=== PATIENT | male | born 1990 | race Caucasian/White ===

== ENCOUNTER 2016-05-07 20:35 | Emergency (ER) | payer SELFPAY ==
[~2016-05-07] VITALS: Ht 180.3 cm; Wt 71.1 kg
[~2016-05-07 20:35] MED LIST: DOXY-300 PO
[2016-05-07 20:43] VITALS: TEMP 36.9; Ht 180.3 cm; Wt 71.1 kg
[2016-05-07] MEDS ORDERED: CEFTRIAXONE SOD INJ 1 GM ADDVIAL IV STA (21:45)
[2016-05-07] MEDS ORDERED: SULFAMETHOXAZOLE/TRIMETHOPRIM DS 800/160MG TAB PO STA (21:45)
[2016-05-07 22:20] LABS: BASO ABS # 0.05 K/uL (0-0.2); COMPLETE YES; EOS % 1.9 %; HEMATOCRIT 40.5 % (42-52); IG% 0.2 %; LYMPH % 23.6 %; LYMPH ABS # 1.23 K/uL (1.2-3.4); MEAN CELL VOLUME 83.9 fL (80-100); MEAN CORPUSCULAR HEMOGLOBIN 30.4 pg (25-34); MEAN CORPUSCULAR HGB CONC 36.3 g/dl (32-36); MEAN PLATELET VOLUME 10.8 fL (7.4-10.4); NEUT % 53.3 %; PLATELET COUNT 206 K/uL (130-400); RED BLOOD COUNT 4.83 M/uL (4.7-6.1); WHITE BLOOD COUNT 5.21 K/uL (4.8-10.8)
[2016-05-07 22:46] LABS: BUN/CREATININE RATIO 18.6 (10-20); C-REACTIVE PROTEIN 6.11 mg/dl (0-0.29); CALCIUM 8.8 mg/dl (8.5-10.1); CREATININE 0.9 mg/dl (0.60-1.40); POTASSIUM 3.6 mmol/L (3.5-5.1)
[2016-05-07 22:48] LABS: ALB/GLOB RATIO 1.2 (0.9-2)
--- NOTE | 2016-05-07 22:48 | DIAGNOSTIC IMAGING REPORT ---
RIGHT UPPER EXTREMITY ULTRASOUND CLINICAL HISTORY: Wound infection. Evaluate for abscess. COMPARISON STUDY: No previous studies for comparison. TECHNIQUE: Sonography of the right antecubital fossa and proximal right forearm was performed. FINDINGS: No well-defined fluid collection was identified within the right antecubital fossa or proximal right forearm. Note was made of a 4.1 x 1.1 x 3.5 cm subcutaneous abnormality. IMPRESSION: 4.1 x 1.1 x 3.5 cm subcutaneous abnormality of the right antecubital fossa and proximal right forearm. The sonographic appearance is nonspecific but this may reflect soft tissue swelling. No drainable abscess identified. Electronically signed by: Asim Harp M.D. 05/07/2016 10:47 PM Dictated Date/Time: 05/07/2016 10:43 PM
--- NOTE | 2016-05-07 22:50 | DIAGNOSTIC IMAGING REPORT ---
LEFT UPPER EXTREMITY ULTRASOUND CLINICAL HISTORY: Wound infection. Evaluate for abscess. COMPARISON STUDY: No previous studies for comparison. TECHNIQUE: Sonography of the left antecubital fossa and proximal forearm was performed. FINDINGS: Note was made of a 2.2 x 1.1 x 0.5 cm linear hypoechoic focus within the subcutaneous tissues of the left forearm. No additional abnormalities were identified on this exam. IMPRESSION: Small 2.2 x 1.1 x 0.5 cm linear hypoechoic abnormality of the subcutaneous tissues of the left forearm. The sonographic appearance is nonspecific although this could reflect a small amount of thrombus within a superficial vein. A tiny fluid collection could appear similar. Electronically signed by: Asim Harp M.D. 05/07/2016 10:49 PM Dictated Date/Time: 05/07/2016 10:47 PM
[2016-05-08] MEDS ORDERED: SEPTRA DS HOME PACK 1 EA VIAL PO ONE
[2016-05-08] MEDS ORDERED: CEPHALEXIN 500MG HOME PACK 1 EA BTL PO ONE
--- NOTE | 2016-05-08 00:01 | EMERGENCY ROOM VISIT NOTE ---
History First contact with patient: 21:40 Chief Complaint: OTHER COMPLAINT Stated Complaint: WOUND INFECTION History of Present Illness The patient is a 26 year old male who presents to the Emergency Department by private vehicle for evaluation of possible abscesses to the bilateral arms. He reports a history of IV drug use. He reports the last time he used was approximately 5 days ago. He typically uses methamphetamine. He does report a history cellulitis to the neck which he was initially treated for at [facility]. He was unable to obtain his medication secondary to lack of insurance. The patient reports that he has had increasing redness and swelling to the bilateral and to keep all areas over the last few days. He denies any fevers or chills. He rates his current discomfort as an 8/10. He denies any chest pain, shortness of breath, dizziness, lightheadedness, nausea, vomiting, or palpitations. He denies any broken needles during injections. Review of Systems A complete 10-point Review of Systems was discussed with the patient, with pertinent positives and negatives listed in the History of Present Illness. All remaining Review of Systems questions can be considered negative unless otherwise specified. Social History Smoking Status: Current Every Day Smoker Smokeless Tobacco Use: No Drug Use: other (meth) Occupation Status: employed Current/Historical Medications Scheduled Cephalexin Monohydrate (Keflex), 500 MG PO TID Sulfa/Trimethoprim (Bactrim Ds 800MG/160MG), 1 TAB PO BID Allergies Coded Allergies: Acetaminophen (Unverified Allergy, Unknown, GI UPSET , 05/07/16) Physical Exam Vital Signs Date Time Temp Pulse Resp B/P Pulse Ox O2 Delivery O2 Flow Rate FiO2 05/08/16 00:17 86 16 124/71 98 05/07/16 23:02 99 18 128/77 97 Room Air 05/07/16 20:43 36.9 102 20 142/80 99 Pain Rating (0-10): 8 Physical Exam VITAL SIGNS - Vital signs and nursing notes were reviewed. GENERAL - 26-year-old male appearing his stated age and in noticeable discomfort throughout the exam. MUSCULOSKELETAL - The RIGHT upper extremity demonstrates erythema and mild tenderness to palpation to the RIGHT antecubital fossa. No fluctuance to palpation. No discharge or drainage. No palpable cords. No limited streaking. The LEFT upper extremity demonstrates a focus of erythema to the proximal forearm. No fluctuance to palpation. No discharge or drainage. No palpable cords. Full range of motion of the bilateral upper extremities noted with +5/5 strength appreciated bilaterally. NEUROLOGIC - SENSORY: Spinothalamic tract was found to be intact with ability to discriminate sharp versus dull sensation at the level of the bilateral elbows down to the fingertips. No sensory deficits of the dorsal column were appreciated utilizing light touch for evaluation. VASCULAR - Capillary refill was brisk. +3/5 radial pulse palpated. Medical Decision & Procedures ER Provider Diagnostic Interpretation: Radiological imaging and reports were reviewed by myself. Radiologist's Interpretation as follows: RIGHT UPPER EXTREMITY ULTRASOUND CLINICAL HISTORY: Wound infection. Evaluate for abscess. COMPARISON STUDY: No previous studies for comparison. TECHNIQUE: Sonography of the right antecubital fossa and proximal right forearm was performed. FINDINGS: No well-defined fluid collection was identified within the right antecubital fossa or proximal right forearm. Note was made of a 4.1 x 1.1 x 3.5 cm subcutaneous abnormality. IMPRESSION: 4.1 x 1.1 x 3.5 cm subcutaneous abnormality of the right antecubital fossa and proximal right forearm. The sonographic appearance is nonspecific but this may reflect soft tissue swelling. No drainable abscess identified. LEFT UPPER EXTREMITY ULTRASOUND CLINICAL HISTORY: Wound infection. Evaluate for abscess. COMPARISON STUDY: No previous studies for comparison. TECHNIQUE: Sonography of the left antecubital fossa and proximal forearm was performed. FINDINGS: Note was made of a 2.2 x 1.1 x 0.5 cm linear hypoechoic focus within the subcutaneous tissues of the left forearm. No additional abnormalities were identified on this exam. IMPRESSION: Small 2.2 x 1.1 x 0.5 cm linear hypoechoic abnormality of the subcutaneous tissues of the left forearm. The sonographic appearance is nonspecific although this could reflect a small amount of thrombus within a superficial vein. A tiny fluid collection could appear similar. Laboratory Results 05/07/16 22:07 Red Blood Count 4.83, Mean Corpuscular Volume 83.9, Mean Corpuscular Hemoglobin 30.4, Mean Corpuscular Hemoglobin Concent 36.3, Mean Platelet Volume 10.8, Neutrophils (%) (Auto) 53.3, Lymphocytes (%) (Auto) 23.6, Monocytes (%) (Auto) 20.0, Eosinophils (%) (Auto) 1.9, Basophils (%) (Auto) 1.0, Neutrophils # (Auto ) 2.78, Lymphocytes # (Auto) 1.23, Monocytes # (Auto) 1.04, Eosinophils # (Auto ) 0.10, Basophils # (Auto) 0.05 05/07/16 22:07 Test 05/07/16 22:07 White Blood Count 5.21 K/uL (4.8-10.8) Red Blood Count 4.83 M/uL (4.7-6.1) Hemoglobin 14.7 g/dL (14.0-18.0) Hematocrit 40.5 % (42-52) Mean Corpuscular Volume 83.9 fL (80-100) Mean Corpuscular Hemoglobin 30.4 pg (25-34) Mean Corpuscular Hemoglobin Concent 36.3 g/dl (32-36) Platelet Count 206 K/uL (130-400) Mean Platelet Volume 10.8 fL (7.4-10.4) Neutrophils (%) (Auto) 53.3 % Lymphocytes (%) (Auto) 23.6 % Monocytes (%) (Auto) 20.0 % Eosinophils (%) (Auto) 1.9 % Basophils (%) (Auto) 1.0 % Neutrophils # (Auto) 2.78 K/uL (1.4-6.5) Lymphocytes # (Auto) 1.23 K/uL (1.2-3.4) Monocytes # (Auto) 1.04 K/uL (0.11-0.59) Eosinophils # (Auto) 0.10 K/uL (0-0.5) Basophils # (Auto) 0.05 K/uL (0-0.2) RDW Standard Deviation 38.2 fL (36.4-46.3) RDW Coefficient of Variation 12.5 % (11.5-14.5) Immature Granulocyte % (Auto) 0.2 % Immature Granulocyte # (Auto) 0.01 K/uL (0.00-0.02) Erythrocyte Sedimentation Rate 9 mm/hr (0-14) Anion Gap 7.0 mmol/L (3-11) Est Creatinine Clear Calc Drug Dose 122.9 ml/min Estimated GFR () 134.2 Estimated GFR (Non- 115.8 BUN/Creatinine Ratio 18.6 (10-20) Calcium Level 8.8 mg/dl (8.5-10.1) Total Bilirubin 0.7 mg/dl (0.2-1) Aspartate Amino Transf (AST/SGOT) 48 U/L (15-37) Alanine Aminotransferase (ALT/SGPT) 19 U/L (12-78) Alkaline Phosphatase 88 U/L (45-117) C-Reactive Protein 6.11 mg/dl (0-0.29) Total Protein 7.4 gm/dl (6.4-8.2) Albumin 4.0 gm/dl (3.4-5.0) Globulin 3.4 gm/dl (2.5-4.0) Albumin/Globulin Ratio 1.2 (0.9-2) Medications Administered Medications (Trade) Dose Ordered Sig/Jensen Route Start Time Stop Time Status Last Admin Dose Admin Ceftriaxone Sodium (Rocephin Inj) 1 gm NOW STAT IV 05/07/16 21:45 05/07/16 21:47 DC 05/07/16 22:57 1 GM Trimethoprim/ Sulfamethoxazole (Septra Ds 800/ 160MG Tab) 2 tab NOW STAT PO 05/07/16 21:45 05/07/16 21:47 DC 05/07/16 22:57 2 TAB Cephalexin Monohydrate (Keflex 500MG Home Pack) 1 homepack NOW ONCE PO 05/08/16 00:00 05/08/16 00:01 DC 05/08/16 00:08 1 HOMEPACK Trimethoprim/ Sulfamethoxazole (Sulfameth/ Trimeth Ds 800/ 160MG Home Pack) 1 homepack UD ONCE PO 05/08/16 00:00 05/08/16 00:01 DC 05/08/16 00:09 1 HOMEPACK ED Course Patient was seen and evaluated by myself. Labs were drawn, saline lock in place. The patient was treated with IV Rocephin and oral Bactrim. Ultrasounds of the bilateral upper tremors were obtained. Imaging results as above. Laboratory results demonstrate no acute leukocytosis, worrisome anemia, or bandemia. The patient has no significant electrolyte abnormalities. ESR is not elevated. CRP is minimally elevated. The patient was educated on today's findings. He was placed on Keflex and Bactrim for home. He was encouraged to follow-up with his primary care provider for continued management. He was instructed to return in 48 hours for wound recheck. He was educated on worrisome symptoms for return visit to the emergency department. Patient discharged home afebrile and in good condition. Medical Decision Given the patient's presentation and stated complaints, I did elect to perform the above-mentioned workup. The patient presents today with cellulitis with early abscess to the bilateral antecubital areas after injecting with methamphetamine. Ultrasound demonstrated no drainable abscesses at this point. He has no fever leukocytosis. He was treated aggressively with IV Rocephin as well as oral Bactrim. He will be placed on Keflex and Bactrim at home. He was educated on using warm compresses to the area. He will return in 48 hours for recheck. He'll return sooner for any changing or worsening symptoms. Patient discharged home in good condition. In the evaluation and treatment of this patient, the following differential diagnoses were considered: Foreign body, DVT, necrotizing fasciitis, amongst others. Impression Primary Impression: Cellulitis and abscess of upper arm and forearm Departure Information Dispostion Home / Self-Care Condition GOOD Prescriptions Sulfa/Trimethoprim (Bactrim Ds 800MG/160MG) Tab 1 TAB PO BID for 10 Days, #20 TAB Prov: Drew Arnold PA-C 05/08/16 Cephalexin Monohydrate (Keflex) 500 Mg Cap 500 MG PO TID for 10 Days, #30 CAP Prov: Drew Arnold PA-C 05/08/16 Referrals No Doctor, Assigned (PCP) Patient Instructions My [facility] Additional Instructions You were seen in the Emergency Department for cellulitis with early abscess formation to the arms bilaterally. Please have the wounds reevaluated in 48 hours. Return sooner for any changing or worsening symptoms. You were prescribed Keflex and Bactrim to be taken as prescribed. Both of these medications are antibiotics. Stop these medications and contact a medical provider if you were to develop any significant adverse side effects including: wheezing, shortness of breath, passing out, vomiting, or a diffuse rash. Always take antibiotics as directed and COMPLETE the ENTIRE course regardless of the improvement of your symptoms. Proper wound care is essential for adequate wound healing and infection prevention. You can shower and clean the wound with soap and water. Do not scour over the wound. Pat dry with a towel. Do not submerse the wound (i.e. bathe or dish wash) until the sutures have been removed. You can use an antibiotic ointment with a dressing over the wound for the next 3-4 days. After this time you may leave the wound dry and open to the air. If crust develops over the wound you can use a Q-tip to apply a 1:1 peroxide:water solution to clean the wound. Look for signs of infection of the wound including: increased pain, swelling, foul discharge, streaking, or increased temperature. If any of these are noticed you should return to the Emergency Department for further assessment and treatment. As with any laceration you may have received nerve damage to the surrounding tissues. This damage may or may not be permanent. For pain control, you can use the following [id number] medicines (if >12 yo): - Regular strength (325mg/tab) Tylenol (acetaminophen) 2 tabs every 4-6 hours as needed. Do not exceed 12 tablets in a 24 hour period. Avoid taking more than 4 grams (4000 mg) of Tylenol per day. This includes any other sources of acetaminophen you may take on a regular basis. - Regular strength (200 mg/tab) Advil (ibuprofen) 1-2 tabs every 4-6 hours as needed. Do not exceed a dose of 3200 mg per day. Return to the emergency department if your symptoms worsen despite treatment course outlined above.
[2016-05-08] MEDS ORDERED: CEPH500C PO ×2 (00:05)
[2016-05-08] MEDS ORDERED: SULF800T23 PO ×2 (00:05)
[2016-05-08 00:17] VITALS: BP 124/71; PULSE 86; O2SAT 98
== END 2016-05-08 00:18 | disposition home or self-care (01) ==
LOC: C.EDB 20:38 → C.EDC 05-08 00:18
DX: L03.113 Cellulitis of right upper limb (principal); F17.200 Nicotine dependence, unspecified, uncomplicated